=== PATIENT | female | born 1930 | race Caucasian/White ===

== ENCOUNTER → 2020-01-02 | Outpatient (CLI) | payer MEDICARE ==
--- NOTE | 2020-01-02 12:21 | KCIC ---
MRI Lumbar Spine without contrast History: Sacral back pain, scoliosis, pain with sitting Technique: Multiplanar, multi sequential noncontrast MR imaging was performed of the lumbar spine. Comparison: None Findings: There is mild old height loss of the right at L3 and old superior compression deformity of T12. There is no edema suggestive of recent lumbar compression fracture. There is moderate to severe levoscoliosis with rotary component, centered near L3. There is left lateral subluxation of L4 relative to L5 estimated about 0.9 cm, negligible left lateral subluxation L3 relative to L4, also mild right lateral subluxation L2 relative to L3 and to lesser degree of L1 relative to L2. There is negligible anterior spondylolisthesis at T12-L1, negligible posterior subluxation of L2 relative to L3. There is advanced degenerative disc disease variably L1-L2 through L4-5, minimally at L5-S1. There is moderate degenerative disc disease greater posteriorly at T12-L1. Conus terminates at the superior aspect of L1. There is focus of fluid underneath the skin surface of the left parasagittal back near the T11-L1 level about 1.7 cm transverse by 0.5 cm AP by 2.6 cm cc.. There is a 1.5 cm probable cyst of the right kidney. There is atrophy of the iliopsoas muscles greater on the right. Barely included, there may be some mild amorphous edema of the left iliac bone. T12-L1: There is very minimal posterior bulge with minimal indentation upon the ventral thecal sac greater in the left lateral recess, spinal canal not significantly narrowed. There is mild facet degenerative change. There is [id number] narrowing of the left neural foramen, right neural foramen adequate. L1-L2: There is minimal disc osteophyte complex and bulge. There is minimal buckling of the ligamentum flavum. Spinal canal is overall adequate. Neural foramina are overall adequate. L2-L3: There is minimal bulge, mild indentation upon the ventral thecal sac greater in the far right lateral recess, spinal canal not significantly narrowed. Left neural foramen is adequate. There is [id number] posterior narrowing of the right neural foramen by facet. L3-L4: There is minimal disc osteophyte complex. There is [id number] facet degenerative change. There is mild narrowing of the far right lateral recess. There is moderate to severe narrowing of the right neural foramen by disc osteophyte complex and facet, left neural foramen adequate. L4-L5: There is very minimal disc osteophyte complex. There is mild bilateral facet hypertrophic change. There is deformity of the thecal sac due to scoliosis, mild narrowing of the far left lateral recess. There is moderate narrowing of the left neural foramen from facet minimal disc osteophyte complex. There is moderate narrowing greater distally of the right neural foramen, contact of the undersurface of the proximal extraforaminal right L4 nerve root by uncovered aspect of the right L4-5 disc due to left lateral subluxation of L4 relative to L5. L5-S1: Spinal canal is adequate. There is mild buckling of the ligamentum flavum greater on the left. There is minimal disc osteophyte complex eccentric to the inferior left neural foramen. There is severe narrowing of the left neural foramen with contact of the exiting left L5 nerve root, narrowing by facet and disc osteophyte complex. Right neural foramen is adequate. Impression: 1. There is moderate to severe lumbar levoscoliosis with a rotary component, also multilevel abnormal lateral alignment as stated. 2. There is mild narrowing of the lateral recesses such as on the right at L3-4 and on the left at L4-5, no significant lumbar spinal stenosis. 3. There is multilevel lumbar neural foramina compromise, more significant narrowing on the right at L3-4 and on the left at L5-S1, to a somewhat lesser degree bilaterally at L4-5 and on the left at T12-L1. 4. There is advanced degenerative disc disease variably L1-L2 through L4-5, to a lesser degree at T12-L1 and minimally at L5-S1. 5. There is old superior T12 compression deformity. Electronically signed by: Víctor Irizarry MD (01/02/2020 12:18 PM) [id number]
== END | disposition home or self-care (01) ==
LOC: KCIC MRI 11:03
PROVIDERS: ATTEND Family Medicine
DX: M47.815 Spondylosis without myelopathy or radiculopathy, thoracolumbar region (principal); M51.37 Other intervertebral disc degeneration, lumbosacral region; M53.3 Sacrococcygeal disorders, not elsewhere classified; M51.35 Other intervertebral disc degeneration, thoracolumbar region; M99.13 Subluxation complex (vertebral) of lumbar region; M43.8X4 Other specified deforming dorsopathies, thoracic region
CPT/HCPCS: 72148